=== PATIENT | female | born 1990 | race Caucasian/White ===

== ENCOUNTER → 2016-03-01 | Outpatient (CLI) | payer OTHER ==
[~2016-03-01] MED LIST: AMOXICILLIN500 M2 PO; AMOXICILLIN500 MG PO; AMOXIL500 MG PO; ANAPROX DS550 MG PO; AVPAK AZITHROM250 MG PO; BACTRIM DS 8001 TA1 PO; BIRTH CONTROL; CIPRO500 MG PO; CLARITIN-D 12 H1 TAB PO; CLARITIN10 MG PO; CLEOCIN150 MG PO; DAYPRO600 M1 PO; DIFLUCAN150 MG PO; ELIMITE 5%60 GM T; FLEXERIL5 MG PO; HYDROCODONE BIT1 T11 PO; HYPERTENSION MED; MACROBID100 M1 PO; MEDROL DOSEPAK4 MG PO; MOTRIN800 MG PO; MYCOLOG-II 10001 CRE TP; NAPROSYN500 MG PO; NAPROXEN550 MG PO; NKHM; PHENERGAN25 M1 PO; PREDNISONE10 MG PO; PREDNISONE20 MG PO; PROVENTIL0.09 MG/A1 INH; PROVERA10 MG PO; PYRIDIUM200 MG PO; RANITIDINE150 MG PO; ROBAXIN750 MG PO; SKELAXIN400 MG PO; TESSALON PERLE100 M1 PO; TOPROL XL25 MG PO; TRAMADOL HCL50 MG PO; TRILEPTAL150 MG PO; ULTRAM50 MG PO; VALIUM10 MG PO; VIBRA-TAB100 MG PO; VICODIN 5/500 505 MG PO; VICODIN 500 MG-1 TAB PO; VOLTAREN50 M1 PO; WELLBUTRIN SR150 MG PO; ZITHROMAX Z PA250 MG PO; ZOFRAN ODT4 MG SL; Zofran4 MG PO
== END | disposition home or self-care (01) ==
LOC: ORTHO 01:15
DX: M21.061 Valgus deformity, not elsewhere classified, right knee (principal); M25.562 Pain in left knee; M25.561 Pain in right knee

== ENCOUNTER 2016-08-06 11:48 | Emergency (ER) | payer OTHER ==
[~2016-08-06] VITALS: Wt 131.1 kg
[2016-08-06 12:29] LABS: BILIRUBIN 1+ (NEGATIVE); BLOOD NEGATIVE (NEGATIVE); CLARITY CLOUDY (CLEAR); COLOR YELLOW (YELLOW); GLUCOSE NEGATIVE (NEGATIVE); KETONE TRACE (NEGATIVE); LEUKO ESTERASE 1+ (NEGATIVE); NITRITE NEGATIVE (NEGATIVE); PROTEIN TRACE (NEGATIVE)
[2016-08-06 12:47] LABS: BACTERIA 3+; EPITHELIAL CELLS 20-30; URINE REFLEX COMMENT YES (NO)
[2016-08-06] MEDS ORDERED: MACROBID100 M1 PO (13:19)
== END 2016-08-06 13:52 | disposition home or self-care (01) ==
LOC: ED 11:48
PROVIDERS: Registered Nurse
DX: N30.00 Acute cystitis without hematuria (principal); F17.200 Nicotine dependence, unspecified, uncomplicated; Z79.899 Other long term (current) drug therapy

== ENCOUNTER 2016-09-16 08:26 | Emergency (ER) | payer OTHER ==
[~2016-09-16] VITALS: Ht 167.6 cm; Wt 131.1 kg
[2016-09-16 08:59] LABS: BASO % 0.3 % (0.0-1.0); EOS # 0.1 10*3/uL (0.0-0.4); EOS % 0.9 % (1.0-4.0); HEMATOCRIT 42.9 % (37.0-47.0); HEMOGLOBIN 14.2 g/dl (12.0-16.0); IG # 0.1 10*3/uL (0.0-0.1); LYMPH # 2.8 10*3/uL (1.3-4.4); LYMPH % 18.5 % (27.0-41.0); MEAN CELL VOLUME 91.1 fl (81.0-99.0); MEAN CORPUSCULAR HGB 30.1 pg (27.0-31.0); MEAN CORPUSCULAR HGB CONC 33.1 g/dl (33.0-37.0); MEAN PLATELET VOLUME 9.7 fl (9.6-12.3); MONO # 0.7 10*3/uL (0.1-1.0); MONO % 4.4 % (3.0-9.0); NEUT # 11.2 10*3/uL (2.3-7.9); NEUT % 75.4 % (47.0-73.0); PLATELET COUNT AUTOMATED 280 10*3/uL (130-400); RED BLOOD COUNT 4.71 10*6/uL (4.10-5.10); RED CELL DISTRI WIDTH 14.4 % (0-14.5); WHITE BLOOD COUNT 14.9 10*3/uL (4.8-10.8)
[2016-09-16 09:03] LABS: BILIRUBIN NEGATIVE (NEGATIVE); BLOOD NEGATIVE (NEGATIVE); CLARITY SL CLOUDY (CLEAR); COLOR YELLOW (YELLOW); GLUCOSE NEGATIVE (NEGATIVE); KETONE NEGATIVE (NEGATIVE); LEUKO ESTERASE TRACE (NEGATIVE); NITRITE NEGATIVE (NEGATIVE); PROTEIN NEGATIVE (NEGATIVE); SPECIFIC GRAVITY 1.015 (1.005-1.030); UROBILINOGEN 0.2 E.U./dl (0.2-1.0)
[2016-09-16 09:11] LABS: BUN 9 mg/dl (7-24); CARBON DIOXIDE 26 mmol/L (21-32); CHLORIDE 106 mmol/L (98-107); EST GLOM FILT AFRICAN AMERICAN > 60 ml/min; GLUCOSE 98 mg/dL (65-99); POTASSIUM 3.9 mmol/L (3.5-5.1); SODIUM 139 mmol/L (136-145)
[2016-09-16 09:11] LABS: BACTERIA TRACE; MUCOUS 1+; WBC 0-2 wbc/hpf (0-5)
[2016-09-16 09:12] LABS: URINE REFLEX COMMENT NO (NO)
[2016-09-16 09:29] LABS: B-hCG (QUALITATIVE) POSITIVE (NEGATIVE)
== END 2016-09-16 09:39 | disposition home or self-care (01) ==
LOC: ED 08:26
PROVIDERS: Emergency Medicine
DX: O26.891 Other specified pregnancy related conditions, first trimester (principal); R30.0 Dysuria; R10.9 Unspecified abdominal pain; R30.9 Painful micturition, unspecified; F17.200 Nicotine dependence, unspecified, uncomplicated; Z32.01 Encounter for pregnancy test, result positive; Z3A.01 Less than 8 weeks gestation of pregnancy

== ENCOUNTER 2016-11-23 13:36 | Emergency (ER) | payer OTHER ==
[~2016-11-23] VITALS: Ht 165.1 cm; Wt 128.4 kg
[2016-11-23 14:04] LABS: BASO # 0.1 10*3/uL (0.0-0.1); BASO % 0.3 % (0.0-1.0); EOS # 0.1 10*3/uL (0.0-0.4); EOS % 0.5 % (1.0-4.0); HEMATOCRIT 42.6 % (37.0-47.0); HEMOGLOBIN 14.6 g/dl (12.0-16.0); LYMPH # 2.6 10*3/uL (1.3-4.4); LYMPH % 14.5 % (27.0-41.0); MEAN CELL VOLUME 89.3 fl (81.0-99.0); MEAN CORPUSCULAR HGB 30.6 pg (27.0-31.0); MEAN CORPUSCULAR HGB CONC 34.3 g/dl (33.0-37.0); MEAN PLATELET VOLUME 9.7 fl (9.6-12.3); MONO # 0.7 10*3/uL (0.1-1.0); MONO % 3.6 % (3.0-9.0); NEUT # 14.6 10*3/uL (2.3-7.9); NEUT % 80.4 % (47.0-73.0); PLATELET COUNT AUTOMATED 260 10*3/uL (130-400); RED BLOOD COUNT 4.77 10*6/uL (4.10-5.10); RED CELL DISTRI WIDTH 13.6 % (0-14.5); WHITE BLOOD COUNT 18.1 10*3/uL (4.8-10.8)
[2016-11-23] MEDS ORDERED: PREDNISONE10 MG PO (14:06)
[2016-11-23] MEDS ORDERED: CLARITIN10 MG PO (14:06)
[2016-11-23] MEDS ORDERED: FLONASE ALLERG9.9 ML NAS (14:06)
[2016-11-23] MEDS ORDERED: PROAIR HFA8.5 GM INH (14:06)
[2016-11-23] MEDS ORDERED: AVPAK AZITHROM250 MG PO (14:16)
[2016-11-23 14:20] LABS: ALKALINE PHOSPHATASE 64 U/L (45-117); BUN 5 mg/dl (7-24); CHLORIDE 105 mmol/L (98-107); CREATININE 0.49 mg/dL (0.55-1.02); POTASSIUM 4.1 mmol/L (3.5-5.1); SGOT/AST 12 IU/L (3-35); SGPT/ALT 13 U/L (12-78); SODIUM 137 mmol/L (136-145)
== END 2016-11-23 14:34 | disposition home or self-care (01) ==
LOC: ED 13:36
PROVIDERS: Nurse Practitioner Family
DX: O99.512 Diseases of the respiratory system complicating pregnancy, second trimester (principal); O99.332 Smoking (tobacco) complicating pregnancy, second trimester; J06.9 Acute upper respiratory infection, unspecified; F17.200 Nicotine dependence, unspecified, uncomplicated; Z88.8 Allergy status to other drugs, medicaments and biological substances; Z3A.15 15 weeks gestation of pregnancy

== ENCOUNTER 2016-12-14 16:11 | Emergency (ER) | payer OTHER ==
[~2016-12-14] VITALS: Wt 128.4 kg
[~2016-12-14 16:11] MED LIST changes: +FLONASE ALLERG9.9 ML NAS; +PROAIR HFA8.5 GM INH
[2016-12-14 17:08] LABS: BASO % 0.2 % (0.0-1.0); EOS # 0.1 10*3/uL (0.0-0.4); EOS % 0.7 % (1.0-4.0); HEMATOCRIT 40.5 % (37.0-47.0); HEMOGLOBIN 13.8 g/dl (12.0-16.0); LYMPH # 2.9 10*3/uL (1.3-4.4); LYMPH % 14.8 % (27.0-41.0); MEAN CELL VOLUME 89.4 fl (81.0-99.0); MEAN CORPUSCULAR HGB 30.5 pg (27.0-31.0); MEAN CORPUSCULAR HGB CONC 34.1 g/dl (33.0-37.0); MEAN PLATELET VOLUME 9.6 fl (9.6-12.3); MONO # 0.8 10*3/uL (0.1-1.0); MONO % 3.8 % (3.0-9.0); NEUT # 15.9 10*3/uL (2.3-7.9); NEUT % 79.8 % (47.0-73.0); PLATELET COUNT AUTOMATED 259 10*3/uL (130-400); RED BLOOD COUNT 4.53 10*6/uL (4.10-5.10); RED CELL DISTRI WIDTH 13.5 % (0-14.5); WHITE BLOOD COUNT 19.9 10*3/uL (4.8-10.8)
[2016-12-14 17:25] LABS: ALBUMIN 2.9 gm/dl (3.1-4.5); ALKALINE PHOSPHATASE 73 U/L (45-117); BUN 7 mg/dl (7-24); CHLORIDE 103 mmol/L (98-107); CREATININE 0.39 mg/dL (0.55-1.02); LIPASE 84 U/L (73-393); MAGNESIUM 1.7 mg/dL (1.5-2.1); SGOT/AST 9 IU/L (3-35); SGPT/ALT 13 U/L (12-78); SODIUM 137 mmol/L (136-145); TOTAL PROTEIN 6.8 gm/dL (6.4-8.2)
[2016-12-14 17:32] LABS: BILIRUBIN NEGATIVE (NEGATIVE); BLOOD NEGATIVE (NEGATIVE); CLARITY SL CLOUDY (CLEAR); COLOR YELLOW (YELLOW); GLUCOSE NEGATIVE (NEGATIVE); KETONE NEGATIVE (NEGATIVE); LEUKO ESTERASE TRACE (NEGATIVE); NITRITE NEGATIVE (NEGATIVE); SPECIFIC GRAVITY >= 1.030 (1.005-1.030); UROBILINOGEN 0.2 E.U./dl (0.2-1.0)
[2016-12-14 17:42] LABS: BACTERIA 2+; MUCOUS TRACE; RBC 0-2 rbc/hpf (0-2)
== END 2016-12-14 19:44 | disposition home or self-care (01) ==
LOC: ED 16:11
PROVIDERS: Emergency Medicine
DX: O26.892 Other specified pregnancy related conditions, second trimester (principal); Z3A.18 18 weeks gestation of pregnancy; Z87.891 Personal history of nicotine dependence; Z88.8 Allergy status to other drugs, medicaments and biological substances

== ENCOUNTER 2017-01-29 13:17 | Emergency (ER) | payer OTHER ==
[~2017-01-29] VITALS: Ht 165.1 cm; Wt 132.4 kg
[2017-01-29] MEDS ORDERED: AMOXICILLIN500 M2 PO (14:30)
== END 2017-01-29 14:49 | disposition home or self-care (01) ==
LOC: ED 13:17
DX: O26.892 Other specified pregnancy related conditions, second trimester (principal); J01.90 Acute sinusitis, unspecified; O99.332 Smoking (tobacco) complicating pregnancy, second trimester; F17.200 Nicotine dependence, unspecified, uncomplicated; Z98.890 Other specified postprocedural states; Z79.899 Other long term (current) drug therapy; Z88.1 Allergy status to other antibiotic agents; Z3A.24 24 weeks gestation of pregnancy

== ENCOUNTER 2017-03-07 15:30 | Emergency (ER) | payer OTHER ==
[~2017-03-07] VITALS: Wt 137.0 kg
[2017-03-07] MEDS ORDERED: PREPLUS CA-FE1 EACH PO (15:37)
== END 2017-03-07 17:58 | disposition home or self-care (01) ==
LOC: ED 15:30
DX: Z34.93 Encounter for supervision of normal pregnancy, unspecified, third trimester (principal); F17.200 Nicotine dependence, unspecified, uncomplicated; Z88.6 Allergy status to analgesic agent; Z79.899 Other long term (current) drug therapy

== ENCOUNTER 2017-04-07 19:48 | Emergency (ER) | payer OTHER ==
[~2017-04-07] VITALS: Ht 167.6 cm; Wt 137.4 kg
[~2017-04-07 19:48] MED LIST changes: +PREPLUS CA-FE1 EACH PO
[2017-04-07 20:51] LABS: BASO % 0.2 % (0.0-1.0); EOS # 0.1 10*3/uL (0.0-0.4); EOS % 0.6 % (1.0-4.0); HEMATOCRIT 39.7 % (37.0-47.0); HEMOGLOBIN 13.4 g/dl (12.0-16.0); LYMPH # 2.9 10*3/uL (1.3-4.4); LYMPH % 12.5 % (27.0-41.0); MEAN CELL VOLUME 87.8 fl (81.0-99.0); MEAN CORPUSCULAR HGB 29.6 pg (27.0-31.0); MEAN CORPUSCULAR HGB CONC 33.8 g/dl (33.0-37.0); MEAN PLATELET VOLUME 9.6 fl (9.6-12.3); MONO % 4.1 % (3.0-9.0); NEUT % 81.7 % (47.0-73.0); PLATELET COUNT AUTOMATED 289 10*3/uL (130-400); RED BLOOD COUNT 4.52 10*6/uL (4.10-5.10); RED CELL DISTRI WIDTH 13.2 % (0-14.5); WHITE BLOOD COUNT 23.3 10*3/uL (4.8-10.8)
[2017-04-07 21:00] LABS: BILIRUBIN 1+ (NEGATIVE); BLOOD NEGATIVE (NEGATIVE); CLARITY CLOUDY (CLEAR); COLOR YELLOW (YELLOW); GLUCOSE NEGATIVE (NEGATIVE); KETONE NEGATIVE (NEGATIVE); LEUKO ESTERASE NEGATIVE (NEGATIVE); NITRITE NEGATIVE (NEGATIVE); PH 5.5 (5.0-9.0); SPECIFIC GRAVITY >= 1.030 (1.005-1.030); UROBILINOGEN 0.2 E.U./dl (0.2-1.0)
[2017-04-07 21:05] LABS: BACTERIA 1+; MUCOUS TRACE; RBC 0-2 rbc/hpf (0-2)
[2017-04-07 21:13] LABS: ALBUMIN 2.5 gm/dl (3.1-4.5); ALKALINE PHOSPHATASE 112 U/L (45-117); BUN 6 mg/dl (7-24); CHLORIDE 106 mmol/L (98-107); CREATININE 0.45 mg/dL (0.55-1.02); SGOT/AST 10 IU/L (3-35); SGPT/ALT 16 U/L (12-78); SODIUM 139 mmol/L (136-145); TOTAL PROTEIN 6.6 gm/dL (6.4-8.2)
== END 2017-04-07 23:02 | disposition short-term general hospital (02) ==
LOC: ED 19:48
PROVIDERS: Nurse Practitioner
DX: O36.8130 Decreased fetal movements, third trimester, not applicable or unspecified (principal); D72.829 Elevated white blood cell count, unspecified; Z3A.34 34 weeks gestation of pregnancy; O26.893 Other specified pregnancy related conditions, third trimester; O99.333 Smoking (tobacco) complicating pregnancy, third trimester; F17.210 Nicotine dependence, cigarettes, uncomplicated; Z88.8 Allergy status to other drugs, medicaments and biological substances

== ENCOUNTER 2017-07-11 18:14 | Emergency (ER) | payer OTHER ==
[~2017-07-11] VITALS: Wt 130.2 kg
[2017-07-11] MEDS ORDERED: VISTARIL25 M2 PO (18:46)
[2017-07-11] MEDS ORDERED: MEDROL DOSEPAK4 MG PO (18:46)
[2017-07-11] MEDS ORDERED: KENALOG 0.1%80 GM T (18:47)
== END 2017-07-11 18:57 | disposition home or self-care (01) ==
LOC: ED 18:14
DX: L23.7 Allergic contact dermatitis due to plants, except food (principal); Z88.8 Allergy status to other drugs, medicaments and biological substances

== ENCOUNTER 2017-09-08 15:28 | Emergency (ER) | payer OTHER ==
[~2017-09-08] VITALS: Ht 167.6 cm; Wt 128.4 kg
[~2017-09-08 15:28] MED LIST changes: +KENALOG 0.1%80 GM T; +VISTARIL25 M2 PO
[2017-09-08] MEDS ORDERED: NAPROSYN500 MG PO (15:40)
[2017-09-08] MEDS ORDERED: TYLENOL325 M1 PO (15:40)
== END 2017-09-08 15:46 | disposition home or self-care (01) ==
LOC: ED 15:28
DX: M25.532 Pain in left wrist (principal); Z88.6 Allergy status to analgesic agent; Z79.899 Other long term (current) drug therapy

== ENCOUNTER 2018-04-01 18:39 | Emergency (ER) | payer OTHER ==
[~2018-04-01] VITALS: Ht 167.6 cm; Wt 127.0 kg
[~2018-04-01 18:39] MED LIST changes: +TYLENOL325 M1 PO
[2018-04-01] MEDS ORDERED: PREDNISONE50 MG PO (20:45)
[2018-04-01] MEDS ORDERED: AMOXICILLIN500 M2 PO (20:45)
[2018-04-01] MEDS ORDERED: ZITHROMAX250 MG PO (21:02)
== END 2018-04-01 21:20 | disposition home or self-care (01) ==
LOC: ED 18:39
DX: J20.9 Acute bronchitis, unspecified (principal); G56.01 Carpal tunnel syndrome, right upper limb; F17.200 Nicotine dependence, unspecified, uncomplicated; Z88.8 Allergy status to other drugs, medicaments and biological substances; Z79.899 Other long term (current) drug therapy

== ENCOUNTER 2018-06-09 19:52 | Emergency (ER) | payer OTHER ==
[~2018-06-09] VITALS: Wt 133.4 kg
[~2018-06-09 19:52] MED LIST changes: +PREDNISONE50 MG PO; +ZITHROMAX250 MG PO
[2018-06-09] MEDS ORDERED: DEXTROAMPH SACC10 M1 PO (19:55)
[2018-06-09] MEDS ORDERED: OXCARBAZEPINE150 MG PO (19:56)
[2018-06-09] MEDS ORDERED: BUPROPION75 MG PO (19:56)
[2018-06-09 20:44] LABS: BILIRUBIN NEGATIVE (NEGATIVE); BLOOD NEGATIVE (NEGATIVE); CLARITY CLEAR (CLEAR); COLOR YELLOW (YELLOW); GLUCOSE NEGATIVE (NEGATIVE); KETONE NEGATIVE (NEGATIVE); LEUKO ESTERASE NEGATIVE (NEGATIVE); NITRITE NEGATIVE (NEGATIVE); PH 6.5 (5.0-9.0); SPECIFIC GRAVITY 1.015 (1.005-1.030); UROBILINOGEN 0.2 E.U./dl (0.2-1.0)
[2018-06-09 20:53] LABS: BACTERIA 1+
[2018-06-09 20:54] LABS: WBC 0-2 wbc/hpf (0-5)
[2018-06-09] MEDS ORDERED: MACROBID100 M1 PO (21:04)
== END 2018-06-09 20:45 | disposition home or self-care (01) ==
LOC: ED 19:52
PROVIDERS: Nurse Practitioner Family
DX: R30.0 Dysuria (principal); R10.9 Unspecified abdominal pain; R35.0 Frequency of micturition; R11.0 Nausea; F17.200 Nicotine dependence, unspecified, uncomplicated; Z88.8 Allergy status to other drugs, medicaments and biological substances; Z79.899 Other long term (current) drug therapy

== ENCOUNTER → 2018-08-01 | Outpatient (CLI) | payer OTHER ==
[~2018-08-01] MED LIST changes: +BUPROPION75 MG PO; +DEXTROAMPH SACC10 M1 PO; +OXCARBAZEPINE150 MG PO
--- NOTE | ~2018-08-01 | EKG ---
[place], [place] ELECTROCARDIOGRAM REPORT NAME: TONYA MONROY UNIT #: [id number] ROOM: DOCTOR: SAMEERA DRAFT REPORT BIRTHDATE: [birth year] [facility] Test Date: 2018-08-01 Test Time: 13:42:08 Pat Name: TONYA MONROY Department: Room: Gender: F Tag Marker: : 1990 Requested By: MILA EM Order Number: [id number] Reading MD: Taty Rivera MD Measurements Intervals [place] Rate: 87 P: 53 WA: 158 QRS: 63 QRSD: 95 T: 50 QT: 369 QTc: 444 Interpretive Statements Sinus rhythm Baseline wander in lead(s) II,III,aVF,V4 No previous ECG available for comparison Electronically Signed On 08-02-2018 14:54:34 PDT by Taty Rivera MD CM:EKGRPT:ELECTROCARDIOGRAM REPORT [id number] MILA BRASHER DRAFT REPORT MILA EM
== END | disposition home or self-care (01) ==
LOC: CARD 13:29
DX: Z51.81 Encounter for therapeutic drug level monitoring (principal); Z79.899 Other long term (current) drug therapy

== ENCOUNTER 2019-03-05 15:38 | Emergency (ER) | payer OTHER ==
[~2019-03-05] VITALS: Ht 167.6 cm; Wt 136.1 kg
[2019-03-05] MEDS ORDERED: ROBITUSSIN DM 105 ML PO (18:16)
[2019-03-05] MEDS ORDERED: ZYRTEC10 MG PO (18:16)
[2019-03-05] MEDS ORDERED: FLONASE ALLERG9.9 ML NAS (18:16)
[2019-03-05] MEDS ORDERED: AMOXICILLIN500 M2 PO (18:16)
== END 2019-03-05 18:40 | disposition home or self-care (01) ==
LOC: ED 15:38
DX: J20.9 Acute bronchitis, unspecified (principal); E66.9 Obesity, unspecified; M19.90 Unspecified osteoarthritis, unspecified site; Z88.1 Allergy status to other antibiotic agents; Z79.899 Other long term (current) drug therapy; Z72.0 Tobacco use

== ENCOUNTER 2019-07-15 09:14 | Emergency (ER) | payer OTHER ==
[~2019-07-15] VITALS: Ht 165.1 cm; Wt 136.1 kg
[~2019-07-15 09:14] MED LIST changes: +ROBITUSSIN DM 105 ML PO; +ZYRTEC10 MG PO
== END 2019-07-15 11:06 | disposition home or self-care (01) ==
LOC: ED 09:14
DX: S93.401A Sprain of unspecified ligament of right ankle, initial encounter (principal); F41.9 Anxiety disorder, unspecified; F31.9 Bipolar disorder, unspecified; Z88.8 Allergy status to other drugs, medicaments and biological substances; Z79.899 Other long term (current) drug therapy; X50.1XXA Overexertion from prolonged static or awkward postures, initial encounter; Y93.89 Activity, other specified; Y92.89 Other specified places as the place of occurrence of the external cause; Y99.8 Other external cause status

== ENCOUNTER 2019-11-14 00:52 | Emergency (ER) | payer OTHER ==
[~2019-11-14] VITALS: Ht 167.6 cm; Wt 136.1 kg
[2019-11-14] MEDS ORDERED: PREDNISONE20 M1 PO (01:35)
[2019-11-14] MEDS ORDERED: ZITHROMAX250 MG PO (01:35)
[2019-11-14] MEDS ORDERED: PROAIR HFA8.5 GM INH (02:42)
== END 2019-11-14 03:06 | disposition home or self-care (01) ==
LOC: ED 00:52
DX: J45.909 Unspecified asthma, uncomplicated (principal); J32.9 Chronic sinusitis, unspecified; Z88.8 Allergy status to other drugs, medicaments and biological substances; Z79.899 Other long term (current) drug therapy

== ENCOUNTER 2020-09-20 22:16 | Emergency (ER) | payer OTHER ==
[~2020-09-20] VITALS: Ht 160 cm; Wt 99.8 kg
[~2020-09-20 22:16] MED LIST changes: +PREDNISONE20 M1 PO
[2020-09-20 22:57] LABS: HEMATOCRIT 46.3 % (37.0-47.0); MEAN CELL VOLUME 90.6 fl (81.0-99.0); MEAN CORPUSCULAR HGB 29.2 pg (27.0-31.0); MEAN CORPUSCULAR HGB CONC 32.2 g/dl (33.0-37.0); MEAN PLATELET VOLUME 9.8 fl (9.6-12.3); PLATELET COUNT AUTOMATED 304 10*3/uL (130-400); RED BLOOD COUNT 5.11 10*6/uL (4.10-5.10); RED CELL DISTRI WIDTH 13.7 % (0-14.5); WHITE BLOOD COUNT 20.8 10*3/uL (4.8-10.8)
[2020-09-20 23:15] LABS: ALBUMIN 3.5 gm/dl (3.1-4.5); ALKALINE PHOSPHATASE 77 U/L (45-117); BUN 11 mg/dl (7-24); CHLORIDE 105 mmol/L (98-107); CREATININE 0.68 mg/dL (0.55-1.02); POTASSIUM 4.4 mmol/L (3.5-5.1); SGOT/AST 14 IU/L (3-35); SGPT/ALT 19 U/L (12-78); SODIUM 136 mmol/L (136-145); TOTAL PROTEIN 7.5 gm/dL (6.4-8.2)
[2020-09-20 23:26] LABS: ATYPICAL LYMPHS 1 % (0-0); PLATELET SUFFICIENCY NORMAL (NORMAL); TOTAL CELLS COUNTED 100 #CELLS
[2020-09-21] MEDS ORDERED: ZITHROMAX250 MG PO (00:34)
[2020-09-21] MEDS ORDERED: DECADRON6 M1 PO (00:34)
== END 2020-09-21 00:53 | disposition home or self-care (01) ==
LOC: ED 22:16
PROVIDERS: Internal Medicine
DX: B34.9 Viral infection, unspecified (principal); Z20.822 Contact with and (suspected) exposure to COVID-19; E66.9 Obesity, unspecified; F17.200 Nicotine dependence, unspecified, uncomplicated; Z88.8 Allergy status to other drugs, medicaments and biological substances; Z98.890 Other specified postprocedural states

== ENCOUNTER 2021-04-10 22:14 | Emergency (ER) | payer OTHER ==
[~2021-04-10] VITALS: Ht 167.6 cm; Wt 113.4 kg
[~2021-04-10 22:14] MED LIST changes: +DECADRON6 M1 PO
[2021-04-10 22:39] LABS: BILIRUBIN Negative (Negative); BLOOD Negative (Negative); CLARITY Cloudy (Clear); COLOR Dark Yellow (Yellow); GLUCOSE Negative (Negative); KETONE Negative (Negative); LEUKO ESTERASE 1+ (Negative); NITRITE Negative (Negative); SPECIFIC GRAVITY 1.025 (1.001-1.030)
[2021-04-10 23:20] LABS: BACTERIA 2+
[2021-04-10] MEDS ORDERED: CIPRO500 MG PO (23:22)
== END 2021-04-10 23:30 | disposition home or self-care (01) ==
LOC: ED 22:14
PROVIDERS: Internal Medicine
DX: N39.0 Urinary tract infection, site not specified (principal); Z88.8 Allergy status to other drugs, medicaments and biological substances

== ENCOUNTER 2021-12-07 16:19 | Emergency (ER) | payer OTHER ==
[~2021-12-07] VITALS: Ht 167.6 cm; Wt 136.1 kg
[2021-12-07] MEDS ORDERED: AMOX-CLAV 875-1 EACH PO (19:37)
[2021-12-07] MEDS ORDERED: NAPROSYN500 MG PO (19:37)
== END 2021-12-07 20:07 | disposition home or self-care (01) ==
LOC: ED 16:19
DX: K02.9 Dental caries, unspecified (principal); F17.200 Nicotine dependence, unspecified, uncomplicated; Z79.899 Other long term (current) drug therapy; Z88.1 Allergy status to other antibiotic agents

== ENCOUNTER 2022-12-12 07:05 | Emergency (ER) | payer OTHER ==
[~2022-12-12] VITALS: Ht 167.6 cm; Wt 127.0 kg
[~2022-12-12 07:05] MED LIST changes: +AMOX-CLAV 875-1 EACH PO
[2022-12-12 08:18] LABS: BASO % 0.4 % (0.0-1.0); EOS # 0.1 10*3/uL (0.0-0.4); EOS % 1.2 % (1.0-4.0); HEMATOCRIT 47.1 % (37.0-47.0); LYMPH # 1.9 10*3/uL (1.3-4.4); LYMPH % 18.1 % (27.0-41.0); MEAN CELL VOLUME 88.9 fl (81.0-99.0); MEAN CORPUSCULAR HGB 30.4 pg (27.0-31.0); MEAN CORPUSCULAR HGB CONC 34.2 g/dl (33.0-37.0); MEAN PLATELET VOLUME 9.9 fl (9.6-12.3); MONO # 0.5 10*3/uL (0.1-1.0); MONO % 5.1 % (3.0-9.0); NEUT # 7.7 10*3/uL (2.3-7.9); NEUT % 74.9 % (47.0-73.0); PLATELET COUNT AUTOMATED 263 10*3/uL (130-400); RED CELL DISTRI WIDTH 13.5 % (0-14.5); WHITE BLOOD COUNT 10.3 10*3/uL (4.8-10.8)
[2022-12-12 08:36] LABS: ALKALINE PHOSPHATASE 60 U/L (46-116); BUN 6 mg/dl (9-23); CHLORIDE 107 mmol/L (98-107); LIPASE 25 U/L (12-53); SGPT/ALT 10 U/L (10-49); TOTAL PROTEIN 6.8 gm/dL (6.0-8.0)
[2022-12-12 08:47] LABS: BETA-HCG, QUANT < 3.0 mIU/mL (3-10)
[2022-12-12] MEDS ORDERED: ONDANSETRON4 MG SL (09:57)
[2022-12-12] MEDS ORDERED: CLEOCIN HCL150 MG PO (09:57)
== END 2022-12-12 10:14 | disposition home or self-care (01) ==
LOC: ED 07:05
PROVIDERS: Emergency Medicine
DX: R11.2 Nausea with vomiting, unspecified (principal); K08.89 Other specified disorders of teeth and supporting structures; R10.13 Epigastric pain; M54.9 Dorsalgia, unspecified; F41.9 Anxiety disorder, unspecified; F31.9 Bipolar disorder, unspecified; M19.90 Unspecified osteoarthritis, unspecified site; Z88.8 Allergy status to other drugs, medicaments and biological substances; Z98.890 Other specified postprocedural states; Z72.0 Tobacco use

== ENCOUNTER 2023-07-08 15:41 | Emergency (ER) | payer OTHER ==
[~2023-07-08] VITALS: Ht 167.6 cm; Wt 136.1 kg
[~2023-07-08 15:41] MED LIST changes: +CLEOCIN HCL150 MG PO; +ONDANSETRON4 MG SL
[2023-07-08] MEDS ORDERED: ACETAMINOPHEN 325 MG TAB PO ONE (16:10)
== END 2023-07-08 17:36 | disposition home or self-care (01) ==
LOC: ED 15:41
DX: M17.11 Unilateral primary osteoarthritis, right knee (principal); F41.9 Anxiety disorder, unspecified; F31.9 Bipolar disorder, unspecified; Z88.8 Allergy status to other drugs, medicaments and biological substances; Z98.890 Other specified postprocedural states; Z72.0 Tobacco use

== ENCOUNTER 2023-10-27 15:51 | Emergency (ER) | payer OTHER ==
[~2023-10-27] VITALS: Ht 167.6 cm; Wt 136.1 kg
[2023-10-27] MEDS ORDERED: Ondansetron Hydrochloride 4 MG/2 ML VIAL IV ONE (16:05)
[2023-10-27] MEDS ORDERED: MORPHINE Sulfate 2 MG/ML SYR IV ONE (16:05)
[2023-10-27] MEDS ORDERED: SODIUM CHLORIDE 0.9% 1,000 ML IV ONE (16:05)
[2023-10-27 16:18] LABS: BASO # 0.1 10*3/uL (0.0-0.1); BASO % 0.3 % (0.0-1.0); EOS # 0.2 10*3/uL (0.0-0.4); EOS % 1.2 % (1.0-4.0); HEMATOCRIT 47.2 % (37.0-47.0); LYMPH # 3.6 10*3/uL (1.3-4.4); LYMPH % 20.9 % (27.0-41.0); MEAN CELL VOLUME 91.5 fl (81.0-99.0); MEAN CORPUSCULAR HGB 29.8 pg (27.0-31.0); MEAN CORPUSCULAR HGB CONC 32.6 g/dl (33.0-37.0); MEAN PLATELET VOLUME 9.5 fl (9.6-12.3); MONO # 0.8 10*3/uL (0.1-1.0); MONO % 4.4 % (3.0-9.0); NEUT # 12.4 10*3/uL (2.3-7.9); NEUT % 72.8 % (47.0-73.0); PLATELET COUNT AUTOMATED 286 10*3/uL (130-400); RED BLOOD COUNT 5.16 10*6/uL (4.10-5.10); RED CELL DISTRI WIDTH 13.4 % (0-14.5); WHITE BLOOD COUNT 17.1 10*3/uL (4.8-10.8)
[2023-10-27 16:20] LABS: BILIRUBIN Negative (Negative); BLOOD Negative (Negative); CLARITY Cloudy (Clear); COLOR Yellow (Yellow); GLUCOSE Negative (Negative); KETONE Negative (Negative); LEUKO ESTERASE 1+ (Negative); NITRITE Negative (Negative); PH 7.5 (4.5-8.0)
[2023-10-27 16:32] LABS: BUN 7 mg/dl (9-23); CHLORIDE 105 mmol/L (98-107); POTASSIUM 4.3 mmol/L (3.4-5.1)
[2023-10-27 16:34] LABS: BACTERIA TRACE
[2023-10-27] MEDS ORDERED: SEPTDS PO (16:53)
[2023-10-27] MEDS ORDERED: TRAMADOL HCL50 MG PO (16:53)
[2023-10-27] MEDS ORDERED: Ceftriaxone Sodium 1 GM/10 ML SYR IV ONE (17:10)
== END 2023-10-27 17:04 | disposition home or self-care (01) ==
LOC: ED 15:51
PROVIDERS: Emergency Medicine
DX: N12 Tubulo-interstitial nephritis, not specified as acute or chronic (principal); F41.9 Anxiety disorder, unspecified; F31.9 Bipolar disorder, unspecified; M19.90 Unspecified osteoarthritis, unspecified site; Z88.8 Allergy status to other drugs, medicaments and biological substances; Z98.890 Other specified postprocedural states; Z72.0 Tobacco use

== ENCOUNTER 2023-11-02 16:00 | Emergency (ER) | payer OTHER ==
[~2023-11-02] VITALS: Ht 167.6 cm; Wt 136.1 kg
[~2023-11-02 16:00] MED LIST changes: +SEPTDS PO
[2023-11-02] MEDS ORDERED: Acetaminophen/Oxycodone 5 MG/325 MG TABLET PO ONE (17:15)
[2023-11-02] MEDS ORDERED: IOHEXOL 300 MG/ML 100 ML VIAL IV ONE (17:20)
[2023-11-02 17:33] LABS: BASO # 0.1 10*3/uL (0.0-0.1); BASO % 0.5 % (0.0-1.0); EOS # 0.2 10*3/uL (0.0-0.4); EOS % 1.6 % (1.0-4.0); HEMATOCRIT 45.4 % (37.0-47.0); LYMPH # 2.2 10*3/uL (1.3-4.4); LYMPH % 22.9 % (27.0-41.0); MEAN CELL VOLUME 90.8 fl (81.0-99.0); MEAN CORPUSCULAR HGB 29.6 pg (27.0-31.0); MEAN CORPUSCULAR HGB CONC 32.6 g/dl (33.0-37.0); MEAN PLATELET VOLUME 9.5 fl (9.6-12.3); MONO # 0.7 10*3/uL (0.1-1.0); MONO % 7.6 % (3.0-9.0); NEUT # 6.5 10*3/uL (2.3-7.9); PLATELET COUNT AUTOMATED 252 10*3/uL (130-400); WHITE BLOOD COUNT 9.7 10*3/uL (4.8-10.8)
[2023-11-02 17:45] LABS: BILIRUBIN Negative (Negative); BLOOD Negative (Negative); CLARITY Clear (Clear); COLOR Yellow (Yellow); GLUCOSE Negative (Negative); KETONE Trace (Negative); LEUKO ESTERASE 1+ (Negative); NITRITE Negative (Negative); UROBILINOGEN 0.2 E.U./dl (0.0-1.0)
[2023-11-02 17:50] LABS: BUN 7 mg/dl (9-23); CHLORIDE 108 mmol/L (98-107)
[2023-11-02 18:04] LABS: BACTERIA 1+; EPITHELIAL CELLS 31-40; RBC 0-2 rbc/hpf (0-2)
[2023-11-02] MEDS ORDERED: CYCLOBENZAPRINE5 M3 PO (20:43)
[2023-11-02] MEDS ORDERED: Cyclobenzaprine Hydrochlorid 10 MG TAB PO ONE (21:00)
== END 2023-11-02 20:51 | disposition home or self-care (01) ==
LOC: ED 16:00
PROVIDERS: Physician Assistant Medical
DX: M54.9 Dorsalgia, unspecified (principal); M79.605 Pain in left leg; F41.9 Anxiety disorder, unspecified; F31.9 Bipolar disorder, unspecified; M19.90 Unspecified osteoarthritis, unspecified site; Z88.8 Allergy status to other drugs, medicaments and biological substances; Z98.890 Other specified postprocedural states; Z72.0 Tobacco use

== ENCOUNTER 2024-08-13 11:12 | Emergency (ER) | payer OTHER ==
[~2024-08-13] VITALS: Ht 167.6 cm; Wt 125.6 kg
[~2024-08-13 11:12] MED LIST changes: +CYCLOBENZAPRINE5 M3 PO
[2024-08-13] MEDS ORDERED: PREDNISONE20 M1 PO (11:33)
[2024-08-13] MEDS ORDERED: methylPREDNISolone sod succ 125 MG VIAL IM ONE (11:35)
== END 2024-08-13 11:35 | disposition home or self-care (01) ==
LOC: ED 11:12
DX: L23.7 Allergic contact dermatitis due to plants, except food (principal); F41.9 Anxiety disorder, unspecified; F32.A Depression, unspecified; M17.10 Unilateral primary osteoarthritis, unspecified knee; J45.909 Unspecified asthma, uncomplicated; Z88.8 Allergy status to other drugs, medicaments and biological substances; Z79.899 Other long term (current) drug therapy; Z98.890 Other specified postprocedural states; Z87.891 Personal history of nicotine dependence

== ENCOUNTER 2024-12-17 16:05 | Inpatient (IN) | payer OTHER ==
[~2024-12-17] VITALS: Ht 167.6 cm; Wt 124.9 kg
[2024-12-17 16:17] VITALS: BP 157/108
[2024-12-17] MEDS ORDERED: Albuterol Sulf/Ipratropium 3 ML VIAL NEB ONE (16:55)
[2024-12-17 17:22] LABS: MEAN CELL VOLUME 91.5 fl (81.0-99.0); MEAN CORPUSCULAR HGB 29.8 pg (27.0-31.0); MEAN PLATELET VOLUME 9.5 fl (9.6-12.3); NUCLEATED RED BLOOD CELL 0.0 % (0.0-0.0); NUCLEATED RED BLOOD CELL 0.0 10*3/uL (0.0-0.0); PLATELET COUNT AUTOMATED 325 10*3/uL (130-400); RED CELL DISTRI WIDTH 13.5 % (0-14.5)
[2024-12-17 17:26] LABS: MANUAL DIFF REFLEX YES
[2024-12-17] MEDS ORDERED: Water, Sterile 10 ML VIAL ONE (17:27)
[2024-12-17 17:44] LABS: BUN 7 mg/dl (9-23)
[2024-12-17 17:45] LABS: PLATELET SUFFICIENCY NORMAL (NORMAL)
[2024-12-17 18:10] LABS: BILIRUBIN Negative (Negative); BLOOD Negative (Negative); CLARITY Cloudy (Clear); COLOR Yellow (Yellow); KETONE Trace (Negative); LEUKO ESTERASE 1+ (Negative); NITRITE Negative (Negative); PH 5.0 (4.5-8.0); SPECIFIC GRAVITY 1.025 (1.001-1.030); UROBILINOGEN 1.0 E.U./dl (0.0-1.0)
[2024-12-17 18:24] LABS: BACTERIA 1+
[2024-12-17] MEDS ORDERED: AZITHROMYCIN 250 ML IV ONE (18:45)
[2024-12-17] MEDS ORDERED: SODIUM CHLORIDE 0.9% 1,000 ML IV ONE ×2 (18:45→22:05)
[2024-12-17 19:23] VITALS: BP 127/74
[2024-12-17] MEDS ORDERED: SODIUM CHLORIDE 0.9% 100 ML BAG IV ONE (19:35)
[2024-12-17] MEDS ORDERED: IOHEXOL 350 MG/ML 100 ML VIAL IV ONE (19:35)
[2024-12-17 22:50] VITALS: BP 119/60
[2024-12-17] MEDS ORDERED: SODIUM CHLORIDE 0.9% 500 ML IV ONE (23:10)
[2024-12-17] MEDS ORDERED: Acetaminophen/Hydrocodone 5 MG/325 MG TABLET PO PRN (23:20)
[2024-12-17] MEDS ORDERED: Ondansetron Hydrochloride 4 MG/2 ML VIAL IV PRN (23:20)
[2024-12-17] MEDS ORDERED: BISACODYL 5 MG TAB PO PRN (23:20)
[2024-12-17] MEDS ORDERED: ACETAMINOPHEN 325 MG TAB PO PRN (23:20)
[2024-12-18] MEDS ORDERED: Albuterol Sulf/Ipratropium 3 ML VIAL NEB SCH (00:05)
[2024-12-18 01:01] VITALS: BP 114/69
[2024-12-18 03:00] VITALS: BP 116/58
[2024-12-18 06:04] LABS: MEAN CELL VOLUME 91.5 fl (81.0-99.0); MEAN CORPUSCULAR HGB 30.3 pg (27.0-31.0); MEAN PLATELET VOLUME 9.7 fl (9.6-12.3); NUCLEATED RED BLOOD CELL 0.0 % (0.0-0.0); NUCLEATED RED BLOOD CELL 0.0 10*3/uL (0.0-0.0); PLATELET COUNT AUTOMATED 313 10*3/uL (130-400); RED CELL DISTRI WIDTH 13.5 % (0-14.5)
[2024-12-18 06:07] LABS: FREE T4 1.32 ng/dl (0.89-1.76); LDL CHOLESTEROL 70.0 mg/dL (9-159)
[2024-12-18 06:10] LABS: MANUAL DIFF REFLEX YES
[2024-12-18 06:21] LABS: ACT PARTIAL THROMBO TIME 31.0 SECONDS (20.0-32.1)
[2024-12-18 06:58] LABS: PLATELET SUFFICIENCY NORMAL (NORMAL)
[2024-12-18 07:57] LABS: VITAMIN D, 25-HYDROXY 30.1 ng/mL (30-100)
[2024-12-18 08:00] VITALS: BP 118/69
[2024-12-18 12:00] VITALS: BP 140/93
[2024-12-18 16:00] VITALS: BP 122/77
[2024-12-18 20:00] VITALS: BP 126/50
[2024-12-18] MEDS ORDERED: AZITHROMYCIN 250 ML IV SCH (21:00)
[2024-12-19] VITALS: BP 136/74
[2024-12-19 05:40] LABS: BUN 8 mg/dl (9-23)
[2024-12-19 06:13] LABS: MEAN CELL VOLUME 92.5 fl (81.0-99.0); MEAN CORPUSCULAR HGB 29.8 pg (27.0-31.0); MEAN PLATELET VOLUME 9.8 fl (9.6-12.3); NUCLEATED RED BLOOD CELL 0.0 % (0.0-0.0); NUCLEATED RED BLOOD CELL 0.0 10*3/uL (0.0-0.0); PLATELET COUNT AUTOMATED 274 10*3/uL (130-400); RED CELL DISTRI WIDTH 13.7 % (0-14.5)
[2024-12-19 06:19] LABS: MANUAL DIFF REFLEX YES
[2024-12-19 07:05] LABS: PLATELET SUFFICIENCY NORMAL (NORMAL)
[2024-12-19 08:00] VITALS: BP 117/62
[2024-12-19] MEDS ORDERED: VENT7GM INH (11:17)
[2024-12-19] MEDS ORDERED: ZITHROMAX250 MG PO (11:17)
[2024-12-19] MEDS ORDERED: MUCINEX1200 M1 PO (11:17)
== END 2024-12-19 12:14 | disposition home or self-care (01) | DRG 720 ==
LOC: ED 16:05 → 5E 22:25 → EDHOLD 22:25 → 5E 12-18 02:44
PROVIDERS: Nurse Practitioner Family; ADMIT Internal Medicine; ATTEND Internal Medicine
DX: A41.9 Sepsis, unspecified organism (principal); J15.69 Pneumonia due to other Gram-negative bacteria; N39.0 Urinary tract infection, site not specified; F17.210 Nicotine dependence, cigarettes, uncomplicated; D72.820 Lymphocytosis (symptomatic); M54.9 Dorsalgia, unspecified; R73.9 Hyperglycemia, unspecified; I49.9 Cardiac arrhythmia, unspecified; Z82.49 Family history of ischemic heart disease and other diseases of the circulatory system; Z71.6 Tobacco abuse counseling; Z88.8 Allergy status to other drugs, medicaments and biological substances; Z83.3 Family history of diabetes mellitus